=== PATIENT | male | born 1970 | race American Indian/Alaskan Native ===

== ENCOUNTER 2018-03-25 18:10 | Emergency (ER) | payer MEDICAID ==
[~2018-03-25] VITALS: Ht 188 cm; Wt 106.8 kg
[2018-03-25 19:37] VITALS: BP 117/72
--- NOTE | 2018-03-25 19:37 | NUR ---
PT RESTING IN BED LIGHTS DIMMED TALKING ON CELL PHONE FLOAT RN
[2018-03-25] MEDS ORDERED: cephalexin 500mg capsule PO ONE (20:30)
[2018-03-25] MEDS ORDERED: CEPH500C5 PO (20:34)
[2018-03-25] MEDS ORDERED: ACET-3068 PO (20:34)
== END 2018-03-25 20:45 | disposition home or self-care (01) ==
LOC: ER 18:11
DX: L03.116 Cellulitis of left lower limb (principal); E11.9 Type 2 diabetes mellitus without complications; F17.200 Nicotine dependence, unspecified, uncomplicated; F12.90 Cannabis use, unspecified, uncomplicated; F11.90 Opioid use, unspecified, uncomplicated; Z56.0 Unemployment, unspecified; Z88.8 Allergy status to other drugs, medicaments and biological substances
CPT/HCPCS: 99284

== ENCOUNTER 2019-02-22 10:26 | Emergency (ER) | payer MEDICAID ==
[~2019-02-22] VITALS: Ht 188 cm; Wt 122.7 kg
[~2019-02-22 10:26] MED LIST: CEPH500C5 PO
[2019-02-22 10:33] VITALS: BP 123/83
[2019-02-22] MEDS ORDERED: ibuprofen tablet 400 MG TABLET PO ONE (12:05)
[2019-02-22] MEDS ORDERED: LIDOcaine 1% W/epiNEPHrine 1:200,000 10ml vial IJ ONE (12:05)
[2019-02-22] MEDS ORDERED: CEPH250T PO (12:56)
[2019-02-22] MEDS ORDERED: DOXY100C43 PO (12:56)
[2019-02-22] MEDS ORDERED: IBUP-1984 PO (13:29)
== END 2019-02-22 13:29 | disposition home or self-care (01) ==
LOC: ER 10:26
DX: L02.31 Cutaneous abscess of buttock (principal); F12.90 Cannabis use, unspecified, uncomplicated; F11.90 Opioid use, unspecified, uncomplicated; E11.9 Type 2 diabetes mellitus without complications; Z56.0 Unemployment, unspecified; Z98.890 Other specified postprocedural states
CPT/HCPCS: 10061; 99284

== ENCOUNTER 2019-02-24 17:07 | Emergency (ER) | payer MEDICAID ==
[~2019-02-24] VITALS: Ht 188 cm; Wt 124.0 kg
[~2019-02-24 17:07] MED LIST changes: +CEPH250T PO; +DOXY100C43 PO; +IBUP-1984 PO
[2019-02-24 17:11] VITALS: BP 136/80
== END 2019-02-24 18:05 | disposition home or self-care (01) ==
LOC: ER 17:07
DX: L02.31 Cutaneous abscess of buttock (principal); E11.9 Type 2 diabetes mellitus without complications; F12.90 Cannabis use, unspecified, uncomplicated; F11.90 Opioid use, unspecified, uncomplicated; Z56.0 Unemployment, unspecified; Z98.890 Other specified postprocedural states; Z88.6 Allergy status to analgesic agent; Z79.899 Other long term (current) drug therapy
CPT/HCPCS: 99282

== ENCOUNTER 2019-07-19 21:32 | Emergency (ER) | payer MEDICAID ==
[~2019-07-19] VITALS: Ht 188 cm; Wt 125.0 kg
[2019-07-19 21:38] VITALS: BP 158/86
[2019-07-19] MEDS ORDERED: LIDOcaine 1% W/epiNEPHrine 1:200,000 10ml vial IJ ONE ×2 (22:25→22:40)
[2019-07-19] MEDS ORDERED: DOXY100C77 PO (22:28)
[2019-07-19] MEDS ORDERED: CEPH250T PO (22:28)
== END 2019-07-19 23:21 | disposition home or self-care (01) ==
LOC: ER 21:33
DX: L02.31 Cutaneous abscess of buttock (principal); R60.9 Edema, unspecified; E11.9 Type 2 diabetes mellitus without complications; F12.90 Cannabis use, unspecified, uncomplicated; F11.90 Opioid use, unspecified, uncomplicated; Z98.890 Other specified postprocedural states; Z56.0 Unemployment, unspecified; Z88.8 Allergy status to other drugs, medicaments and biological substances; Z79.2 Long term (current) use of antibiotics
CPT/HCPCS: 10060; 99283

== ENCOUNTER 2020-04-13 17:58 | Emergency (ER) | payer MEDICAID ==
[~2020-04-13] VITALS: Ht 188 cm; Wt 131.8 kg
[2020-04-13 18:04] VITALS: BP 126/91
== END 2020-04-13 19:58 | disposition left against medical advice (07) ==
LOC: ER 17:59
DX: L02.91 Cutaneous abscess, unspecified (principal); Z53.21 Procedure and treatment not carried out due to patient leaving prior to being seen by health care provider

== ENCOUNTER 2020-11-28 18:58 | Emergency (ER) | payer MEDICAID ==
[~2020-11-28] VITALS: Ht 188 cm; Wt 122.7 kg
[2020-11-28 19:03] VITALS: BP 144/82
== END 2020-11-28 20:51 | disposition left against medical advice (07) ==
LOC: ER 18:59
DX: M79.605 Pain in left leg (principal); Z53.21 Procedure and treatment not carried out due to patient leaving prior to being seen by health care provider